=== PATIENT | female | born 1950 ===

== ENCOUNTER 2022-06-30 06:20 | Inpatient (IN) ==
--- NOTE | 2022-06-01 16:26 | PAT Medication Instructions ---
Medication Instructions Date of Service June 01, 2022 Home Medications Baking Soda In Water 8 oz PO QAM acetaminophen 650 mg tablet 1,300 mg PO BID aspirin 81 mg capsule 81 mg PO QPM atorvastatin 80 mg tablet 80 mg PO QPM calcium 600 mg capsule 600 mg PO BID cholecalciferol (vitamin D3) 25 mcg (1,000 unit) tablet (Vitamin D3) 25 mcg PO QAM fexofenadine 180 mg tablet 180 mg PO QAM PRN fluticasone propionate 50 mcg/actuation nasal spray,suspension (Flonase Allergy Relief) 1 spray INTRANASAL BID PRN gabapentin 400 mg capsule 400 mg PO TID glipizide 5 mg tablet 5 mg PO QAM levothyroxine 50 mcg tablet 50 mcg PO QAM losartan 25 mg tablet 25 mg PO HS metformin 1,000 mg tablet 1,000 mg PO BID omeprazole 20 mg capsule,delayed release 20 mg PO QAM ASK your prescriber and surgeon aspirin 81 mg capsule 81 mg PO QPM DO NOT take the morning of surgery Baking Soda In Water 8 oz PO QAM calcium 600 mg capsule 600 mg PO BID cholecalciferol (vitamin D3) 25 mcg (1,000 unit) tablet (Vitamin D3) 25 mcg PO QAM fexofenadine 180 mg tablet 180 mg PO QAM PRN glipizide 5 mg tablet 5 mg PO QAM metformin 1,000 mg tablet 1,000 mg PO BID Take morning of surgery With a small sip of water, OTHERWISE NOTHING TO EAT OR DRINK AFTER MIDNIGHT: acetaminophen 650 mg tablet 1,300 mg PO BID (if needed) fluticasone propionate 50 mcg/actuation nasal spray,suspension (Flonase Allergy Relief) 1 spray INTRANASAL BID PRN (if needed) gabapentin 400 mg capsule 400 mg PO TID levothyroxine 50 mcg tablet 50 mcg PO QAM omeprazole 20 mg capsule,delayed release 20 mg PO QAM Take evening before surgery acetaminophen 650 mg tablet 1,300 mg PO BID (if needed) atorvastatin 80 mg tablet 80 mg PO QPM calcium 600 mg capsule 600 mg PO BID fluticasone propionate 50 mcg/actuation nasal spray,suspension (Flonase Allergy Relief) 1 spray INTRANASAL BID PRN (if needed) gabapentin 400 mg capsule 400 mg PO TID losartan 25 mg tablet 25 mg PO HS metformin 1,000 mg tablet 1,000 mg PO BID Other Notes If you have any questions please call us at [phone] or [phone] or [phone] or [phone]
--- NOTE | 2022-06-06 10:56 | Anesthesiology Consultation ---
Date of Service June 06, 2022 Assessment & Plan (1) Encounter for pre-operative examination: - check BSG am DOS. - COVID screening: Per assessment on 06/06/2022: Travel screen negative, no known COVID-19 positive contacts or current COVID-19 related symptoms in past 2 weeks. Surgeon arranging preop COVID testing, scheduled 06/28/2022. Awaiting results. Chart Review Chart Review: Acceptable Risk for Surgery and Patient seen in Pre Admission Testing Teaching & Discussion Pre-Anesthesia Teaching/Discussion Notes: Instructed NPO after midnight before surgery, except medications with 15 cc of water. Medication instructions provided according to the PAT guidelines. History Surgery Operation Date: 06/30/22 08:15 Proposed Procedures p Right Reverse Total Shoulder Arthroplasty - Isaias Ruiz M.D. Height/Weight Height: 5 ft 2 in Weight: 77 kg Allergies Allergy/AdvReac Type Severity Reaction Status Date / Time Iodinated Contrast Media Allergy Severe Hives Verified 05/31/22 10:08 adhesive Allergy Intermediate skin Verified 05/31/22 10:08 redness/irritation Medications Home Medications Medication Instructions Recorded Confirmed Last Taken Baking Soda In Water 8 oz PO QAM 05/31/22 05/31/22 Unknown acetaminophen 650 mg tablet 1,300 mg PO BID 05/31/22 05/31/22 Unknown aspirin 81 mg capsule 81 mg PO QPM 05/31/22 05/31/22 Unknown atorvastatin 80 mg tablet 80 mg PO QPM 05/31/22 05/31/22 Unknown calcium 600 mg capsule 600 mg PO BID 05/31/22 05/31/22 Unknown cholecalciferol (vitamin D3) 25 25 mcg PO QAM 05/31/22 05/31/22 Unknown mcg (1,000 unit) tablet (Vitamin D3) fexofenadine 180 mg tablet 180 mg PO QAM PRN 05/31/22 05/31/22 Unknown fluticasone propionate 50 1 spray INTRANASAL BID PRN 05/31/22 05/31/22 Unknown mcg/actuation nasal spray,suspension (Flonase Allergy Relief) gabapentin 400 mg capsule 400 mg PO TID 05/31/22 05/31/22 Unknown glipizide 5 mg tablet 5 mg PO QAM 05/31/22 05/31/22 Unknown levothyroxine 50 mcg tablet 50 mcg PO QAM 05/31/22 05/31/22 Unknown losartan 25 mg tablet 25 mg PO HS 05/31/22 05/31/22 Unknown metformin 1,000 mg tablet 1,000 mg PO BID 05/31/22 05/31/22 Unknown omeprazole 20 mg capsule,delayed 20 mg PO QAM 05/31/22 05/31/22 Unknown release Past Medical History Medical History (Updated 06/06/22 @ 14:27 by Eve Jimenez PA-C) Anemia Hgb 9-10, follows with [facility] heme/onc Chronic kidney disease stage 3, follows with Dr. 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 no problems since she was removed from the medication. Patient denies h/o stroke, heart attack, heart failure, blood clots or blood transfusions. Exercise / Class Metabolic Activity II 4-5 Yardwork/Stairs/Walk up hill (ambulates with cane, denies CP or SOB with 1 FOS) Past Family History Family History Other No family history of adverse response to anesthesia Past Surgical History Surgical History History of appendectomy at age 3 History of carpal tunnel release right hand History of cataract surgery bilateral History of cholecystectomy History of colonoscopy History of esophagogastroduodenoscopy (EGD) History of herniorrhaphy at age 3 History of hysterectomy BIANCA + Vaginal hysterectomy History of repair of rotator cuff left shoulder History of vitrectomy right S/P trigger finger release Past Anesthesia History No Hx of Anesthesia Complications and Other (mother and daughter with PONV) History of PONV No Hx of PONV and Hx of Motion Sickness Social History Smoking Status: Former smoker tobacco type: cigarettes Do You Dip or Chew Tobacco: No Smoking End Date: 1994 Hx Alcohol Use: Yes Alcohol type: beer alcohol intake frequency: holidays/special occasions only Hx Substance Use: No substance use type: does not use Review of Systems Snoring, denies witnessed apneas. Patient denies chest pain, shortness of breath, dyspnea on exertion, fever, chills, cough, wheezing, or palpitations. Physical Exam Vital Signs Vitals BP 139/82 P 85 TEMP 98.0 SP02 97% on RA RESP 17 Physical Limited cervical extension range of motion without pain TMD 3.5 finger breaths Mallampati Score 2 Dentition: intact, one crown-left lower back, partial upper plate-removable; denies chipped or loose teeth or implants Lungs: normal respiratory effort. Clear throughout to auscultation, no adventitious breath sounds Cardiac: regular rate and rhythm, no murmurs noted Carotid arteries: negative bruit bilat Lab Results Anesthesia Preop Results Results Anesthesia Widget: WBC 7.39 K/ul (4.8-10.8) 06/06/22 Hgb 9.5 g/dl (12.0-16.0) L 06/06/22 Hct 28.4 % (34.1-44.9) L 06/06/22 Plt 382 K/uL (130-400) 06/06/22 Na 131 mmol/L (136-145) L 06/06/22 K 5.1 mmol/L (3.5-5.1) 06/06/22 Cl 99 mmol/L (98-107) 06/06/22 CO2 21 mmol/L (21-32) 06/06/22 BUN 25 mg/dl (6-23) H 06/06/22 Creat 1.38 mg/dl (0.6-1.2) H 06/06/22 Glucose Level 88 mg/dl (70-99(Fasting)) 06/06/22 PT 9.9 Seconds (9.0-12.0) 06/06/22 PTT 25.1 Seconds (21.0-31.0) 06/06/22 INR 0.9 (0.9-1.1) 06/06/22 HA1c 6.2 % (4.5-5.6) H 06/06/22 Blood Type B Positive 06/06/22 Antibody Screen NEGATIVE 06/06/22 Testing Laboratory Results Jocelin with surgeon's office made aware. Electrocardiogram Date: 06/06/22 NSR, rate 76 bpm Chest X-Ray Date: 06/06/22 FINDINGS: The lungs are clear. Cardiac silhouette is normal in size. No pleural effusions. No pneumothorax. IMPRESSION: No acute process.
--- NOTE | 2022-06-29 15:41 | History & Physical Report ---
Date of Service June 29, 2022 Assessment & Plan (1) Rotator cuff arthropathy of right shoulder: Plan: She again has right shoulder rotator cuff tear arthropathy, and has had decreasing efficacy from the injections over time. This is severely bothersome to her, and she would like to pursue definitive surgical intervention for this. I offered her a right reverse total shoulder arthroplasty. Risks, benefits, and alternatives of surgery were explained in detail. The surgical procedure, as well as postoperative recovery and rehabilitation, was also explained in detail. Risks include bleeding; infection; damage to surrounding structures such as nerves, blood vessels, and tendons that run in the area; persistent pain or stiffness; hardware failure; dislocation; brachial plexus palsy; blood clots; or need for further surgery. The patient understands all of this and wishes to proceed with surgery. Informed consent was obtained. History of Present Illness Chief Complaint: Right shoulder pain Primary Care Provider: Sara Lemus MD Ms. Arita is a 72-year-old [id number] female with chronic worsening right shoulder pain. She has had pain in the shoulder for about 10 years, but got quite severe in the past 3 years. She denies any specific injury, but notes progressive worsening of the pain over the years. She has maintained fairly good motion of her shoulder. She has noticed a lot of grinding pain. It wakes her up at night. I have given her multiple injections with decreasing efficacy over time. Allergies Allergy/AdvReac Type Severity Reaction Status Date / Time Iodinated Contrast Media Allergy Severe Hives Verified 05/31/22 10:08 adhesive Allergy Intermediate skin Verified 05/31/22 10:08 redness/irritation Home Medications Medication Instructions Recorded Confirmed Type Baking Soda In Water 8 oz PO QAM 05/31/22 05/31/22 History acetaminophen 650 mg tablet 1,300 mg PO BID 05/31/22 05/31/22 History aspirin 81 mg capsule 81 mg PO QPM 05/31/22 05/31/22 History atorvastatin 80 mg tablet 80 mg PO QPM 05/31/22 05/31/22 History calcium 600 mg capsule 600 mg PO BID 05/31/22 05/31/22 History cholecalciferol (vitamin D3) 25 25 mcg PO QAM 05/31/22 05/31/22 History mcg (1,000 unit) tablet (Vitamin D3) fexofenadine 180 mg tablet 180 mg PO QAM PRN seasonal 05/31/22 05/31/22 History allergies fluticasone propionate 50 1 spray intranasal BID PRN sinus 05/31/22 05/31/22 History mcg/actuation nasal congestion spray,suspension (Flonase Allergy Relief) gabapentin 400 mg capsule 400 mg PO TID 05/31/22 05/31/22 History glipizide 5 mg tablet 5 mg PO QAM 05/31/22 05/31/22 History levothyroxine 50 mcg tablet 50 mcg PO QAM 05/31/22 05/31/22 History losartan 25 mg tablet 25 mg PO HS 05/31/22 05/31/22 History metformin 1,000 mg tablet 1,000 mg PO BID 05/31/22 05/31/22 History omeprazole 20 mg capsule,delayed 20 mg PO QAM 05/31/22 05/31/22 History release Past Med/Surg History Medical History (Updated 06/29/22 @ 15:40 by Isaias Ruiz M.D.) Anemia Hgb 9-10, follows with [facility] heme/onc Chronic kidney disease stage 3, follows with Dr. 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 no problems since she was removed from the medication. Surgical History History of appendectomy at age 3 History of carpal tunnel release right hand History of cataract surgery bilateral History of cholecystectomy History of colonoscopy History of esophagogastroduodenoscopy (EGD) History of herniorrhaphy at age 3 History of hysterectomy BIANCA + Vaginal hysterectomy History of repair of rotator cuff left shoulder History of vitrectomy right S/P trigger finger release Family History Other No family history of adverse response to anesthesia Social History Smoking Status: Former smoker Second Hand Exposure: Yes (hx); Hx Alcohol Use: Yes Alcohol type: beer Hx Substance Use: No Preferred Language: Luxembourgish Communication Ability: Effective Home Mission Worker Required: No Beliefs That Will Affect Care: None Current Living Situation: Alone Feels Safe at Home: Yes Assistive Devices: Cane and Glasses Physical Exam Physical Exam: Examination of the right shoulder shows very mild limitation in shoulder range of motion due to pain, with palpable crepitus during motion. Rotator cuff strength is globally weak. Results & Data ([facility]) Diagnostic Findings Previous x-rays of the right shoulder from April 2021 reviewed. No significant glenohumeral joint arthritis, but obvious proximal migration humeral head with contact of the humerus with the undersurface of the acromion. Previous MRI of the right shoulder from June 2021 was reviewed. It shows a massive, full-thickness, retracted rotator cuff tear involving the entirety of the supraspinatus and infraspinatus tendons, as well as the upper border of the subscapularis. There is associated severe fatty atrophy of these 3 muscle bellies.
[~2022-06-30 06:20] MED LIST: ACETAMINOPHEN 500 MG TAB PO SCH; CeleBREX 200 MG CAP PO SCH; FAMOTIDINE 20 MG TAB PO SCH; GABAPENTIN 300 MG CAP PO SCH; LR 15ML/HR IV SCH; METOCLOPRAMIDE HCL 10 MG TABLET PO SCH; TRANEXAMIC ACID 1,000 MG **IV Pre-op IV SCH; ceFAZolin 2000MG 2,000 MG/15 ML SYR IV SCH; dexAMETHasone 4 MG TAB PO SCH
[2022-06-30] MEDS ORDERED: BUPIVACAINE 0.5 % 5 MG/1 ML PF 10ML VIAL ONE (06:28)
[2022-06-30] MEDS ORDERED: ePHEDrine sulfate 50 MG/ML AMP IV PRN (07:24)
[2022-06-30] MEDS ORDERED: ONDANSETRON INJ 2 MG/ML 2 ML VIAL IV PRN ×2 (07:24→11:25)
[2022-06-30] MEDS ORDERED: fentaNYL citrate 100 MCG/2 ML VIAL IV PRN (07:24)
[2022-06-30] MEDS ORDERED: ATROPINE SULFATE 0.1 MG/ML 10ML SYR IV PRN (07:24)
[2022-06-30] MEDS ORDERED: MIDAZOLAM HCL 1 MG/ML 2ML VIAL ONE (07:32)
[2022-06-30] MEDS ORDERED: LIDOCAINE 2% 2 ML VIAL/AMP(20MG/ML) INFIL ONE (07:32)
[2022-06-30] MEDS ORDERED: DEXAMETHASONE SOD INJ 4 MG/ML VIAL ONE (07:32)
[2022-06-30] MEDS ORDERED: ONDANSETRON INJ 2 MG/ML 2 ML VIAL ONE (07:32)
[2022-06-30] MEDS ORDERED: PROPOFOL IV EMULSION 10 MG/ML 20 ML VIAL IV ONE ×2 (07:32→09:06)
[2022-06-30] MEDS ORDERED: fentaNYL citrate 100 MCG/2 ML VIAL ONE (07:32)
[2022-06-30] MEDS ORDERED: ROCURONIUM BROMIDE 10 MG/ML 5 ML VIAL IV ONE ×5 (07:33)
--- NOTE | 2022-06-30 07:44 | History & Physical Bridge Note ---
Date of Service June 30, 2022 History & Physical Bridge Note I have examined the patient, reviewed the History & Physical and in the interval since the performance of the History & Physical I have noted the following changes of clinical significance: no changes noted
[2022-06-30] MEDS ORDERED: ePHEDrine sulfate 50 MG/ML SYR ONE (08:44)
[2022-06-30] MEDS ORDERED: ePHEDrine sulfate 50 MG/ML AMP ONE (09:28)
[2022-06-30] MEDS ORDERED: SODIUM CHLORIDE 0.9% INJ 10 ML VIAL ONE (09:29)
--- NOTE | 2022-06-30 09:51 | Operative Report ---
Post Operative Report Pre & Post Diagnosis Operation Date: 06/30/22 08:15 Pre-Op Diagnosis: Right Shoulder Rotator Cuff Tear Arthropathy Post-Op Diagnosis: Right Shoulder Rotator Cuff Tear Arthropathy I identified the patient and participated in the time-out.: Yes Procedure Operation Date: 06/30/22 08:15 Actual Procedures Right reverse total shoulder arthroplasty (34975) Open biceps tenodesis (53612) - Isaias Ruiz M.D. Surgeon Isaias Ruiz Locator Reinier Smith PA-C Estimated Blood Loss 50 Findings Consistent with Post-Op Diagnosis Specimens None Drains None Anesthesia Type General Regional Complications none Disposition Disposition: Recovery Room Indications Ms. Arita is a 72-year-old female with significant pain and weakness in her right shoulder. History, clinical exam, and imaging were consistent with the above diagnosis. Risks, benefits, and alternatives of surgery were explained in detail. The patient understood all this and wished to proceed. Description of Procedure Components Implanted: Tornier Reverse Total Shoulder implants Perform glenoid baseplate: 25mm, 15 degree full wedge with 6.5mm central screw and 5.0mm peripheral screws Glenosphere: 36mm standard Ascend Flex humeral stem: 3B Standard length (74mm) Humeral tray: 1.5 mm offset, +0mm thickness Polyethylene insert: 36mm, +6mm thickness Patient was identified in the preoperative holding area. Operative extremity was marked. Regional blockade was given by the Anesthesia Staff. Patient was then brought back to the operating room, and general anesthesia was induced without complication. Appropriate weight-based dose of Ancef was infused intravenously for antibiotic prophylaxis. The patient was then placed in the beachchair position. Right arm was then prepped and draped in a standard sterile fashion using Chlorhexidine prep. A standard deltopectoral incision was made through the skin and subcutaneous tissue. The cephalic vein was identified and retracted medially. Small branches to the deltoid were coagulated as necessary. The clavipectoral fascia was then incised and the subdeltoid space was opened. The rotator cuff was found to be deficient, and I therefore decided to perform a reverse total shoulder arthroplasty as planned preoperatively. The biceps tendon was identified within the bicipital groove and tenodesed at the superior border of the pectoralis tendon with #2 FiberWire suture. The biceps tendon was then divided proximal to the tenodesis site and the rotator interval was opened. The proximal portion of the biceps tendon was excised. The remaining subscapularis tendon was elevated subperiosteally off of the lesser tuberosity. The glenohumeral joint was then dislocated, and large osteophytes were debrided with a ronguer. The intramedullary canal of the humerus was then opened with a canal finder. The humeral head cut was then made in the appropriate inclination and version using the cutting guide. The humeral canal was then sequentially broached to the appropriate size. A protective cap was then placed on top of the humeral trial. I then turned my attention to the glenoid. The proximal stump of the biceps tendon was excised, along with the labrum circumferentially around the glenoid. The Blueprint drill guide was then positioned on the glenoid, and the guidepin was then inserted. The 15 degree angled reamer was then inserted over the guidepin and an reamed to an appropriate depth. The central screw hole was drilled, and appropriate length 6.5mm central screw was selected. The baseplate was then implanted into place according to our preoperative Blueprint plan by tightening down the central screw. A peripheral 5mm nonlocking screw was placed postero-superiorly first for additional compression of the baseplate, and then additional locking 5 mm peripheral screws were placed to complete fixation of the baseplate. Glenosphere was then impacted and secured. A trial humeral tray and insert were placed on the trial humeral stem, and a trial reduction was carried out. Once I achieved acceptable joint stability and range of motion with the trial implants, the final humeral implants were assembled on the back table and then impacted into position. I then took the shoulder through full range of motion to ensure good stability and acceptable motion. Wound was then copiously irrigated with sterile saline. Deep fascia was closed with 0 V-lock suture. Subcutaneous tissue was closed with 2-0 V-lock, and skin was closed with 3-0 V-lock. Skin was then sealed with Dermabond. Sterile dressings were then applied with a waterproof silver-impregnated dressing, and the arm was placed into a sling. The patient was awakened from anesthesia and taken to the Post Anesthesia Care Unit in stable condition. There were no immediate complications from the procedure. I was present and scrubbed for the entire procedure, with the exception of final skin closure and dressing application. Due to the complex nature of the procedure, the entire surgery was performed with the operational assistance of Reinier Smith PA-C. The maintenance assistant, under direct supervision, was involved in the performance of all aspects of the surgical procedure including hemostasis, tissue incision and retraction, instrument management, patient positioning, and wound closure. I attest to the content of the Intraoperative Record and any orders documented therein. Any exceptions are noted below.
--- NOTE | 2022-06-30 10:41 | XRay Report ---
XR shoulder RT min 2V routine HISTORY: 72 years-old Female Post shoulder surgery right shoulder total joint arthroplasty COMPARISON: Chest radiographs 06/06/2022 TECHNIQUE: 2 views of the right shoulder FINDINGS: Satisfactory alignment of the reverse right shoulder total joint arthroplasty. No acute fracture or u nexpected opaque foreign body. Expected postoperative soft tissue swelling with deep tissue air and o verlying gauze material. IMPRESSION: Reverse right shoulder total joint arthroplasty with expected postoperative changes. ACT 112: Negative or not required by law. The above report was generated using voice recognition software. It may contain grammatical, syntax o r spelling errors. Electronically signed by: Antonio Wells M.D. 06/30/2022 10:39 AM
[2022-06-30] MEDS ORDERED: FEXOFENADINE HCL 180 MG TAB PO PRN (11:25)
[2022-06-30] MEDS ORDERED: FLUTICASONE PROPIONATE NA SPR 16 GM BTL PRN (11:25)
[2022-06-30] MEDS ORDERED: METOCLOPRAMIDE HCL INJ 5 MG/ML 2 ML VIAL IV PRN (11:25)
[2022-06-30] MEDS ORDERED: NALOXONE HCL 0.4 MG/1 ML VIAL/CARP IV PRN (11:25)
[2022-06-30] MEDS ORDERED: oxyCODONE HCL IR 5 MG TAB (IMMEDIATE RELEASE) PO PRN (11:25)
[2022-06-30] MEDS ORDERED: PHARMACY GLYCEMIC MGMT CONSULT PRN (11:25)
[2022-06-30] MEDS ORDERED: bisacodyL 10 MG SUPP PR PRN (11:25)
[2022-06-30] MEDS ORDERED: MAGNESIUM HYDROXIDE SUSP 30 ML UDC PO PRN (11:25)
[2022-06-30] MEDS ORDERED: ACETAMINOPHEN 500 MG TAB PO SCH (11:25)
--- NOTE | 2022-06-30 11:39 | Pharmacy Report ---
Pharmacy Glycemic Short Note 2 - Date of Service June 30, 2022 - Glycemic Short BSG Results (Last 24 hours): 06/30/22 06/30/22 06:56 10:02 POC Glucose 94 140 H OUTPATIENT ANTIDIABETIC REGIMEN: * Metformin 1000 mg PO BIDM * Glipizide 5 mg PO daily HbA1c: 6.2% (06/06/22) ASSESSMENT: * BS is a 72 year old female POD #0 s/p right reverse total shoulder arthroplasty * Received 8 mg dexamethasone IV and PO perioperatively * Preop BSG of 94 mg/dL, postop BSG of 140 mg/dL * Well-controlled T2DM on orals as an outpatient * Will give conservative ~0.2 NPH dose today to cover steroids PLAN FOR INPATIENT GLYCEMIC CONTROL: * Hold outpatient oral diabetes medications * Basal insulin * NPH 15 units SC x 1 (~0.2 unit/kg) * Bolus insulin * NovoLog per scale ACHS or Q6hrs while NPO * Goal Range: Low 110 mg/dL - High 140 mg/dL * Correction Factor: 25 mg/dL/unit * Nutritional / Prandial insulin per carb ratio of 1 unit per 8 grams CHO consumed
[2022-06-30] MEDS ORDERED: DEXTROSE 50% 50 ML SYRINGE IV PRN (11:45)
[2022-06-30] MEDS ORDERED: NovoLIN-N (NPH) PER UNIT CHARGE SQ ONE ×2 (11:45→12:15)
[2022-06-30] MEDS ORDERED: CARBOHYDRATES FOR HYPOGLYCEMIA PO PRN (11:45)
[2022-06-30] MEDS ORDERED: GLUCOSE 40% GEL 15 GM TUBE PO PRN (11:45)
[2022-06-30] MEDS ORDERED: GLUCOSE 10 TAB/TUBE PO PRN (11:45)
[2022-06-30] MEDS ORDERED: GLUCAGON FOR INJ 1 MG VIAL IM PRN (11:45)
[2022-06-30] MEDS: SODIUM CHLORIDE 0.9% 1000ML 1,000 ML IV SCH ×2 (11:49→22:20)
--- NOTE | 2022-06-30 12:41 | Anesthesiology Progress Note ---
Date of Service June 30, 2022 Anesthesia Post Procedure Vital Signs Vital Signs: Temp Pulse Pulse Resp BP Pulse Ox O2 Del Method 06/30/22 12:12 107 H 16 156/84 H 94 06/30/22 11:45 97.5 F L 100 H 18 158/72 H 99 Room Air 06/30/22 11:15 97.5 F L 93 H 18 156/73 H 96 Room Air 06/30/22 10:40 93 H 18 158/76 H 97 Room Air 06/30/22 10:30 97.5 F L 92 H 18 158/82 H 98 Room Air 06/30/22 10:20 88 18 153/81 H 98 Room Air 06/30/22 10:10 98 H 16 139/60 100 Room Air 06/30/22 10:00 97.5 F L 108 H 13 168/85 H 99 Room Air 06/30/22 06:44 98.2 F 70 20 156/88 H 99 Room Air Pain Intensity Right Shoulder: Pain Intensity: 5 Transfer of Care Handoff Completed per policy Notes Mental Status: alert / awake / arousable and participated in evaluation Patient Amnestic to Procedure: Yes Nausea / Vomiting: adequately controlled Pain: adequately controlled Airway Patency, RR, SpO2: stable & adequate BP & HR: stable & adequate Hydration State: stable & adequate Anesthetic Complications: no major complications apparent and Pt Satisfied with anesthetic care
[2022-06-30] MEDS: INSULIN ASPART PER UNIT SC SCH ×3 (12:52→21:08)
[2022-06-30] MEDS ORDERED: IBUPROFEN 600 MG TAB PO SCH (13:00)
[2022-06-30] MEDS: IBUPROFEN 600 MG TAB PO SCH ×2 (14:01→19:42)
[2022-06-30] MEDS: GABAPENTIN 400 MG CAP PO SCH ×2 (14:58→19:41)
[2022-06-30] MEDS: ceFAZolin 1000MG 1,000 MG/7.5 ML SYR IV SCH (17:20)
[2022-06-30] MEDS: ACETAMINOPHEN 500 MG TAB PO SCH (17:21)
[2022-06-30] MEDS: CALCIUM 600MG + VIT D 400 IU TAB PO SCH (19:41)
[2022-06-30] MEDS: DOCUSATE SODIUM 100 MG CAP PO SCH (19:41)
[2022-06-30] MEDS ORDERED: SENNA 8.6 MG TAB PO SCH (21:00)
[2022-06-30] MEDS ORDERED: ATORVASTATIN 40 MG TAB PO SCH (21:00)
[2022-06-30] MEDS ORDERED: LOSARTAN POTASSIUM 25 MG TAB PO SCH (21:00)
[2022-07-01] MEDS: ceFAZolin 1000MG 1,000 MG/7.5 ML SYR IV SCH (00:26)
[2022-07-01] MEDS: ACETAMINOPHEN 500 MG TAB PO SCH (04:23)
[2022-07-01] MEDS ORDERED: LEVOTHYROXINE SODIUM 50 MCG TABLET PO SCH (06:30)
[2022-07-01 06:49] LABS: Basophils # (auto) 0.02 K/uL (0-0.2); Basophils % (auto) 0.2 %; Eosinophils # (auto) 0.01 K/uL (0-0.50); Eosinophils % (auto) 0.1 %; Hematocrit (blood only) 23.9 % (34.1-44.9); Hemoglobin 7.9 g/dl (12.0-16.0); Immature Granulocytes # (auto) 0.06 K/uL (0.00-0.02); Immature Granulocytes % (auto) 0.6 %; Lymphocytes # (auto) 1.94 K/uL (1.2-3.4); Lymphocytes % (auto) 20.9 %; Mean Corpuscular Hemoglobin 31.2 pg (25.0-34.0); Mean Corpuscular Hgb Conc 33.1 g/dL (32.0-36.0); Mean Corpuscular Volume 94.5 fL (80.0-100.0); Mean Platelet Volume 8.8 fL (9.4-12.3); Monocytes # (auto) 0.84 K/uL (0.24-0.82); Monocytes % (auto) 9.1 %; Neutrophils # (auto) 6.41 K/uL (1.4-6.5); Neutrophils % (auto) 69.1 %; Platelet Count 305 K/uL (130-400); RDW Coefficient of Variation 13.5 % (11.5-14.5); RDW Standard Deviation 45.8 fL (36.4-46.3); Red Blood Count 2.53 M/uL (3.93-5.22); White Blood Count 9.28 K/ul (4.8-10.8)
[2022-07-01 07:13] LABS: Echinocytes 2+
[2022-07-01 07:19] LABS: BUN Creatinine Ratio 17.9 (10-20); Creatinine Clr Calc Pharmacy 30.9 ml/min; Est GFR (African American) 37.8 ml/min; Est GFR (Non-African American) 32.6 ml/min; Potassium 4.6 mmol/L (3.5-5.1)
[2022-07-01] MEDS: IBUPROFEN 600 MG TAB PO SCH (07:38)
[2022-07-01] MEDS: CALCIUM 600MG + VIT D 400 IU TAB PO SCH (07:44)
[2022-07-01] MEDS: DOCUSATE SODIUM 100 MG CAP PO SCH (07:45)
[2022-07-01] MEDS: GABAPENTIN 400 MG CAP PO SCH (07:45)
[2022-07-01] MEDS: INSULIN ASPART PER UNIT SC SCH (08:35)
[2022-07-01] MEDS ORDERED: ASPIRIN 325 MG ECTAB PO SCH (09:00)
[2022-07-01] MEDS ORDERED: PANTOprazole 40 MG TAB PO SCH (09:00)
[2022-07-01] MEDS ORDERED: glipiZIDE 5 MG TAB PO SCH (09:00)
[2022-07-01] MEDS ORDERED: MULTIVITAMIN TAB PO SCH (09:00)
[2022-07-01] MEDS ORDERED: CHOLECALCIFEROL 1,000 UNITS 25 MCG TAB PO SCH (09:00)
--- NOTE | 2022-07-01 09:34 | Orthopedic Progress Note ---
Date of Service July 01, 2022 Assessment & Plan (1) Rotator cuff arthropathy of right shoulder: Plan: Postop day 1 status post right reverse TSA PT/OT protocols. Nonweightbearing right upper extremity. DVT prophylaxis- aspirin p.o. daily Pain management as written. Chronic anemia -hemoglobin dropped to 7.9 today. Preop was 9.9. Patient states that she runs between 9 and 10 normally. She remains asymptomatic. Vital signs are stable. Elevated creatinine -preop creatinine was 1.38 and this morning is 1.56. In looking at her preoperative nephrology visit, she normally runs around 1.6. Plans will be to get a CBC and a BMP on Monday. Results to be sent to Dr. Ruiz and to her primary care physician. Plan for discharge to home today. DC planning-patient is planning on outpatient PT upon discharge. Admission and Anticipated Discharge Date Admission Date: June 30, 2022 Subjective Postop day 1 Patient is sitting up in her chair at the bedside. She has no complaints this morning. Denies shortness of breath, chest pain, lightheadedness. She states that she does have history of vertigo but even that seems fairly well managed this morning. She has no pain whatsoever. Her nerve block is still working. Physical Exam Physical Exam: Sling is in place. Silverlon dressing is intact. She has a dense numbness in her thumb and index finger. She has numb and tingling sensation in her third through fifth fingers. She has the ability to flex her fingers but has weak extension at this time does have decent wrist range of motion which is mildly weak as well. Capillary refill is less than 2 seconds. She has no pain at the elbow and range of motion is intact. Results & Data ([facility]) Vital Signs (Past 12 Hours) Vital Signs Temp Pulse Resp BP Pulse Ox O2 Del Method 07/01/22 07:32 36.7 C 75 16 137/73 96 Room Air 07/01/22 04:18 36.7 C 70 16 146/76 H 95 Room Air 06/30/22 23:25 36.7 C 71 16 134/80 94 Room Air Laboratory Results Laboratory Results WBC 9.28 K/ul (4.8-10.8) 07/01/22 06:20 RBC 2.53 M/uL (3.93-5.22) L 07/01/22 06:20 Hgb 7.9 g/dl (12.0-16.0) L 07/01/22 06:20 Hct 23.9 % (34.1-44.9) L 07/01/22 06:20 MCV 94.5 fL (80.0-100.0) 07/01/22 06:20 MCH 31.2 pg (25.0-34.0) 07/01/22 06:20 MCHC 33.1 g/dL (32.0-36.0) 07/01/22 06:20 RDW Std Deviation 45.8 fL (36.4-46.3) 07/01/22 06:20 RDW Coeff of Patricia 13.5 % (11.5-14.5) 07/01/22 06:20 Plt Count 305 K/uL (130-400) 07/01/22 06:20 MPV 8.8 fL (9.4-12.3) L 07/01/22 06:20 Immature Gran % (Auto) 0.6 % 07/01/22 06:20 Neut % (Auto) 69.1 % 07/01/22 06:20 Lymph % (Auto) 20.9 % 07/01/22 06:20 [place] % (Auto) 9.1 % 07/01/22 06:20 Eos % (Auto) 0.1 % 07/01/22 06:20 Baso % (Auto) 0.2 % 07/01/22 06:20 Neut # (Auto) 6.41 K/uL (1.4-6.5) 07/01/22 06:20 Lymph # (Auto) 1.94 K/uL (1.2-3.4) 07/01/22 06:20 [place] # (Auto) 0.84 K/uL (0.24-0.82) H 07/01/22 06:20 Eos # (Auto) 0.01 K/uL (0-0.50) 07/01/22 06:20 Baso # (Auto) 0.02 K/uL (0-0.2) 07/01/22 06:20 Immature Gran # (Auto) 0.06 K/uL (0.00-0.02) H 07/01/22 06:20 Echinocytes 2+ 08/05/22 06:20 Sodium 132 mmol/L (136-145) L 07/01/22 06:20 Potassium 4.6 mmol/L (3.5-5.1) 07/01/22 06:20 Chloride 102 mmol/L (98-107) 07/01/22 06:20 Carbon Dioxide 21 mmol/L (21-32) 07/01/22 06:20 Anion Gap 9 (3-11) 07/01/22 06:20 BUN 28 mg/dl (6-23) H 07/01/22 06:20 Creatinine 1.56 mg/dl (0.6-1.2) H 07/01/22 06:20 Est Cr Clr Drug Dosing 30.9 ml/min 07/01/22 06:20 Est GFR ( Amer) 37.8 ml/min 07/01/22 06:20 Est GFR (Non-Af Amer) 32.6 ml/min 07/01/22 06:20 BUN/Creatinine Ratio 17.9 (10-20) 07/01/22 06:20 Glucose 156 mg/dl (70-99(Fasting)) H 07/01/22 06:20 POC Glucose 151 mg/dl (70-99) H 07/01/22 08:05 Calcium 9.0 mg/dl (8.5-10.1) 07/01/22 06:20 SARS-CoV-2, RNA, NAAT NEGATIVE (NEGATIVE) 06/30/22 06:35 Impressions Shoulder X-Ray 06/30/22 10:06 XR shoulder RT min 2V routine HISTORY: 72 years-old Female Post shoulder surgery right shoulder total joint arthroplasty COMPARISON: Chest radiographs 06/06/2022 TECHNIQUE: 2 views of the right shoulder FINDINGS: Satisfactory alignment of the reverse right shoulder total joint arthroplasty. No acute fracture or unexpected opaque foreign body. Expected postoperative soft tissue swelling with deep tissue air and overlying gauze material. IMPRESSION: Reverse right shoulder total joint arthroplasty with expected postoperative changes. ACT 112: Negative or not required by law. The above report was generated using voice recognition software. It may contain grammatical, syntax or spelling errors. Electronically signed by: Antonio Wells M.D. 06/30/2022 10:39 AM
--- NOTE | 2022-07-01 17:02 | Discharge Summary ---
Date of Service July 01, 2022 Admission HPI Per Admitting Provider Ms. Arita is a 72-year-old [id number] female with chronic worsening right shoulder pain. She has had pain in the shoulder for about 10 years, but got quite severe in the past 3 years. She denies any specific injury, but notes progressive worsening of the pain over the years. She has maintained fairly good motion of her shoulder. She has noticed a lot of grinding pain. It wakes her up at night. I have given her multiple injections with decreasing efficacy over time. Principal Diagnosis Right shoulder rotator cuff tear arthropathy Discharge Data Allergies Allergy/AdvReac Type Severity Reaction Status Date / Time Iodinated Contrast Media Allergy Severe Hives Verified 06/30/22 06:39 adhesive Allergy Intermediate skin Verified 06/30/22 06:39 redness/irritation Procedures Performed Operation Date: 06/30/22 08:15 Actual Procedures p Right Reverse Total Shoulder Arthroplasty(Right) - Isaias Ruiz M.D. Ordered Studies 06/30/22 05:00 US - OR guided needle placemen Routine Hospital Course (1) Rotator cuff arthropathy of right shoulder: Patient underwent a right reverse total shoulder arthroplasty on the date of admission. Patient tolerated the procedure well and was transferred up to the general orthopedic surgery floor in stable condition. Perioperative antibiotic coverage was initiated, and continued for 24 hours postoperatively. DVT prophylaxis was initiated consisting of SCDs and aspirin 325 mg daily. Perioperative pain control regimen was transitioned to strictly oral pain medications by postoperative day 1. On postoperative day 1 the patient was doing very well. Pain was well controlled, and patient was mobilizing well with therapy. Patient was determined be safe and ready for discharge to home. Total Time Total Time Spent Total Time Spent (In Minutes): 15 Discharge Plan Discharge Items Patient Disposition: Home - Home Health Services Reason For Visit: Right Shoulder Rotator Cuff Tear Arthropathy Discharge Diagnosis: Right shoulder rotator cuff tear arthropathy Activity: Per Instructions section Non-emergency contact: Surgeon Call non-emergency contact if: your pain is not controlled, your temperature is above 101.5, your wound has increased redness and your wound has increased drainage Follow-up/Referrals: Sara Lemus MD [Primary Care Provider] - 07/07/22 1:45 pm Isaias Ruiz M.D. [Physician] - (Follow-up in 2 weeks from the day of your surgery for your first wound check.) Diet: Carb Consistent or DM2 Ambulatory Orders: Basic Metabolic Panel (Routine) Timeframe: 20220704 Location: Determined by Patient Ordered By: Keagan Mosley Complete Blood Count with Diff (Routine) Timeframe: 20220704 Location: Determined by Patient Ordered By: Keagan Pineda Attending Provider Instructions: Things to Watch Out For -Go to the Emergency Room if you have sudden onset of nausea, vomiting, chest pain, shortness of breath, or uncontrollable pain. -Call the clinic or go to the Emergency Room if you have a sudden increase in the amount of wound drainage or the drainage becomes thick, yellow or green, or foul-smelling. -For routine questions, call the clinic at [phone] during regular business hours (8am-5pm). For urgent issues after regular business hours, you may call the clinic to be connected to the on-call physician. Dressings -A special waterproof, silver-impregnated dressing was placed on your shoulder. Keep this dressing in place for 1 week after surgery. You may shower with the waterproof dressing in place, but do not soak the dressing in the bathtub or pool. -One week after surgery, you may remove the waterproof dressing. You may continue to shower, and let water run BRIEFLY over the incision, but do not soak the incision in the bathtub or pool for 2 weeks. You may also gently clean the incision with mild soap and water; pat the incision dry after cleaning-do not rub the incision. Apply a new dressing daily thereafter. Shoulder Exercises -Keep your operative shoulder in the sling for comfort, except as detailed below. -You should come out of the sling 4-5 times a day for passive pendulum exercises: lean over and swing your arm in a circular pattern. -You should also do active-assisted forward flexion exercises: use your opposite hand to lift your operative arm forward to 90 degrees. -Do not flex your elbow (curl motion) or supinate your forearm (rotating palm up) against resistance. -Do not use your arm to push yourself up out of bed or up from a seated position. Ice Pack -You may use an ice pack for pain relief. You should use it 20-30 minutes at a time. Place a towel between the ice pack and your skin to prevent frostbite. -You should use the ice pack fairly regularly for the first 1-2 weeks after surgery to help reduce pain and inflammation. -About 2 weeks after your surgery, you should start using heat to loosen up your shoulder prior to doing your stretching exercises, then use the cooling sleeve after your exercises are complete to reduce swelling and pain. Pain Medicines -Your prescriptions for pain medications have already been sent to the pharmacy on file at [facility]. -You have been prescribed an anti-inflammatory (Motrin/ibuprofen) and a non- narcotic pain medicine (Tylenol/acetaminophen). These are your primary pain medications. Take them each every 6 hours as instructed. It is recommended that you stagger these medicines every 3 hours (i.e. take ibuprofen at 8:00 am, then acetaminophen at 11:00 am, then ibuprofen at 2:00 pm, etc) -DO NOT take any additional anti-inflammatories (Advil, Aleve/naproxen, Mobic/meloxicam, Celebrex) or any additional Tylenol/acetaminophen products with these prescribed medications. -You have also been prescribed an additional narcotic pain medication (oxycodone). Take this medicine ONLY for breakthrough pain not controlled by the ibuprofen and acetaminophen. -Do not drive or operate heavy machinery while taking the narcotic medication. -Common side effects of narcotic pain medicines include itching, nausea, constipation, and feeling "loopy". However, if you develop a rash or hives, stop taking the medicine and call the clinic. If you develop swelling in your throat or difficulty breathing, go to the Emergency Room or call 911 IMMEDIATELY. -You may take over the counter stool softeners if needed for constipation. Aspirin -Take a full strength (325mg) aspirin every day for 4 weeks (28 days) to prevent blood clots. -If you were taking a baby aspirin (81mg) prior to surgery, you may resume taking this 81mg dose after you complete the 28-day course of the 325mg strength dose; do not take the 325mg dose in addition to your 81mg dose. -Be aware that you will bruise easier while taking Aspirin; this is normal. However, if you develop a significantly large area of swelling after an injury, or have a cut that will not stop bleeding, call the clinic or go to the Emergency Room immediately. Pending Studies at Discharge: No Stand-Alone Forms: My [facility], Smoking Cessation Medications and DC Order Prescriptions: Continued calcium 600 mg Capsule 600 mg PO BID atorvastatin 80 mg Tablet 80 mg PO QPM gabapentin 400 mg Capsule 400 mg PO TID fexofenadine 180 mg Tablet 180 mg PO QAM PRN (Reason: seasonal allergies) levothyroxine 50 mcg Tablet 50 mcg PO QAM metformin 1,000 mg Tablet 1,000 mg PO BID losartan 25 mg Tablet 25 mg PO HS omeprazole 20 mg Capsule,Delayed Release(Dr/Ec) 20 mg PO QAM fluticasone propionate [Flonase Allergy Relief] 50 mcg/actuation [place],Suspension 1 spray INTRANASAL BID PRN (Reason: sinus congestion) glipizide 5 mg Tablet 5 mg PO QAM cholecalciferol (vitamin D3) [Vitamin D3] 25 mcg (1,000 unit) Tablet 25 mcg PO QAM Baking Soda In Water 8 oz PO QAM Discontinued acetaminophen 650 mg Tablet 1,300 mg PO BID aspirin 81 mg Capsule 81 mg PO QPM Discharge Orders: Discharge Order (Routine); Ordered 07/01/22 Ordered By: Keagan Mosley Admission Data Admit Date/Time: 06/30/22 10:06 Attending Provider: Isaias Ruiz Admit Provider: Isaias Ruiz Primary Care Provider: Sara Lemus Other Providers: Vinicio,Home Health Other Interventions: Discharge Summary Assessment (RN) Last Done: 07/01/22 09:50
== END 2022-07-01 13:03 | disposition home health service (06) | DRG 483 ==
LOC: ASU 06:20 → 3E 10:06
DX: M12.811 Other specific arthropathies, not elsewhere classified, right shoulder; K21.9 Gastro-esophageal reflux disease without esophagitis; Z79.84 Long term (current) use of oral hypoglycemic drugs; M75.101 Unspecified rotator cuff tear or rupture of right shoulder, not specified as traumatic; N18.30 Chronic kidney disease, stage 3 unspecified; Z79.82 Long term (current) use of aspirin; E11.22 Type 2 diabetes mellitus with diabetic chronic kidney disease; Z87.891 Personal history of nicotine dependence; Z86.16 Personal history of COVID-19